=== PATIENT | male | born 1965 | race Caucasian/White ===

== ENCOUNTER → 2017-10-11 | Outpatient (CLI) | payer BC ==
[~2017-10-11] MED LIST: BENZOCAINE ONE 20% MUCOSAL SPRAY.; IV NORMAL SALINE 500ML BAG 500 ML ONE; MIDAZOLAM HCL/PF 2 MG/2 ML VIAL. ONE; fentaNYL PF VIAL 100 MCG/2 ML VIAL ONE
--- NOTE | 2017-10-11 10:42 | PCVCIMAG ---
APPROVED REPORT Study performed: 10/11/2017 08:53:02 EXAM: Transesophageal Echocardiogram Patient Location: [facility] Status: routine BSA: 2.04 HR: 52 bpmBP: 130/64 mmHg Other Information Study Quality: Good Indications Aortic Valve Disease Aortic Regurgitation. Biscuspid Aortic Valve. Echo Enhancing Agent Agent(s) / Amount(s) Used: Agitated Saline cc Procedure After obtaining informed consent, patient underwent transesophageal echo in the [facility]. Type of Sedation : Conscious Sedation Sedation was administered by Tiffany Callahan RN. Versed (5mg) Transesophageal probe was inserted and advanced into esophagus without difficulty by Rajiv Short MD. The ASTER was performed without complications. Throughout the procedure, the blood pressure, pulse oximetry, cardiac rhythm, and rate were monitored. The patient tolerated the procedure without adverse effects. Recovery from conscious sedation was uneventful and vital signs were stable. Left Ventricle Left ventricle is moderately dilated. There is normal LV segmental wall motion. There is normal left ventricular wall thickness. Left ventricular systolic function is normal. The left ventricular ejection fraction is within the normal range. LVEF is 50-55%. Right Ventricle The right ventricle is normal size. The right ventricular systolic function is normal. Atria The left atrium size is normal. No masses or clots in the left atrium or left atrial appendage. No shunting by contrast bubble injection. The right atrium size is normal. Aortic Valve Aortic valve is bicuspid. Severe aortic regurgitation. There is no aortic valvular stenosis. Mitral Valve The mitral valve is normal in structure. Mild to moderate mitral regurgitation. No evidence of mitral valve stenosis. Tricuspid Valve The tricuspid valve is normal in structure. There is no tricuspid valve regurgitation noted. Pulmonic Valve The pulmonary valve is normal in structure. There is no pulmonic valvular regurgitation. Great Vessels The aortic root is normal in size. The ascending aorta is normal in size. Pericardium There is no pericardial effusion. <Conclusion> Left ventricular systolic function is normal. Left ventricle is moderately dilated. Normal LV segmental wall motion. LVEF 50-55%. The left atrium size is normal. No masses or clots in the left atrium or left atrial appendage. No shunting by contrast bubble injection. Aortic valve is bicuspid, non-stenotic. Severe aortic regurgitation. The mitral valve is normal in structure. Mild to moderate mitral regurgitation. Normal aorta There is no pericardial effusion.
== END | disposition home or self-care (01) ==
LOC: PCVCINTER 08:53
PROVIDERS: ATTEND Internal Medicine
DX: I08.0 Rheumatic disorders of both mitral and aortic valves (principal); E78.5 Hyperlipidemia, unspecified; E66.9 Obesity, unspecified; E78.00 Pure hypercholesterolemia, unspecified; I10 Essential (primary) hypertension
CPT/HCPCS: 93312; 93325; 99152; 99153; J2250; J3010; J7040